=== PATIENT | male | born 1960 | race Caucasian/White ===

== ENCOUNTER 2021-02-20 21:30 | Emergency (ER) | payer OTHER ==
[~2021-02-20] VITALS: Ht 172.7 cm; Wt 88.6 kg
[2021-02-21 01:23] VITALS: BP 145/96; PULSE 74; TEMP 98.7
== END 2021-02-21 01:23 | disposition home or self-care (01) ==
LOC: COL.ER 21:30
DX: U07.1 COVID-19 (principal); I10 Essential (primary) hypertension
CPT/HCPCS: Q0247